=== PATIENT | female | born 1940 | race Two or more races ===

== ENCOUNTER 2018-10-12 14:45 | Emergency (ER) | payer OTHER ==
[~2018-10-12] VITALS: Ht 160 cm; Wt 74.4 kg
[2018-10-12] MEDS ORDERED: SYNTHROID50 MCG (14:53)
[2018-10-12] MEDS ORDERED: METFORMIN HCL500 MG (14:55)
--- NOTE | 2018-10-12 14:55 | NUR ---
SE RECIBE PTE. FEMENINA COM[place] DE FAMIL PTE. REFIERE SE REALIZO LABORATORIOS HOY Y LE SALIO LA HEMOGLOBINA BAJA EN DOS OCASIONES QUE SE LO REALIZO Y CHRISTINE NEFROLOGO Y LA ENVIO A VERNIR A DEBBIE DE EMERGENCIAS HEMOGLOBLINA EN 6.15 PTE. TRAJO LOS LABORATORIOS SE PASA A A ARMIDA DE OBSERVACION.
--- NOTE | 2018-10-12 15:32 | NUR ---
PACIENTE ALERTA Y ORIENTADA EVALUADA POR LE DR. ALVARENGA EL CUAL SE DAVID MUESTRAS DE SNAGRE Y CANALIZADA EN BRAZO MARISSA ANGIO #18 POR MISS/ FOLH SE MANTIEIEN OSBERVACION PO RCAMBIO SEN CHRISTINE CODNICON.
[2018-10-13] MEDS ORDERED: INTEGRA PLUS C1 EACH PO (07:54)
== END 2018-10-13 07:55 | disposition home or self-care (01) ==
LOC: ER 14:45 → EDBD 14:50 → ER 14:50 → SURH 20:45 → ER 20:45 → SURH 10-13 22:49
DX: D50.8 Other iron deficiency anemias (principal); E11.9 Type 2 diabetes mellitus without complications; Z79.4 Long term (current) use of insulin